=== PATIENT | female | born 1990 | race African-American/Black ===

== ENCOUNTER 2016-07-22 12:25 | Emergency (ER) | payer SELFPAY ==
[~2016-07-22] VITALS: Ht 162.6 cm; Wt 63.5 kg
[2016-07-22 12:25] VITALS: BP 123/82
== END 2016-07-22 13:27 | disposition home or self-care (01) ==
LOC: ER 12:29
DX: R07.89 Other chest pain (principal); J20.9 Acute bronchitis, unspecified; F17.200 Nicotine dependence, unspecified, uncomplicated
CPT/HCPCS: 71010-TC; A4606; Z7610

== ENCOUNTER → 2016-12-13 | Emergency (ER) | payer MEDICAID ==
[~2016-12-13] VITALS: Ht 167.6 cm; Wt 63.5 kg
[2016-12-13 14:59] VITALS: BP 136/81
== END | disposition home or self-care (01) ==
LOC: ER 14:43
DX: J32.9 Chronic sinusitis, unspecified (principal); F17.200 Nicotine dependence, unspecified, uncomplicated
CPT/HCPCS: A4606; Z7610

== ENCOUNTER 2017-07-27 12:19 | Emergency (ER) | payer MEDICAID ==
[~2017-07-27] VITALS: Ht 162.6 cm; Wt 66.2 kg
[2017-07-27 12:28] VITALS: BP 122/73
[2017-07-27] MEDS ORDERED: DEXAMETHASONE SOD PHOSPHATE 10 MG/ML VIAL IM ONE (15:00)
[2017-07-27] MEDS ORDERED: DEXAMETHASONE SOD PHOSPHATE 10 MG/ML VIAL ONE (15:16)
== END 2017-07-27 15:58 | disposition home or self-care (01) ==
LOC: ER 12:20
DX: H61.21 Impacted cerumen, right ear (principal); H66.91 Otitis media, unspecified, right ear; J32.9 Chronic sinusitis, unspecified; F17.200 Nicotine dependence, unspecified, uncomplicated; L25.9 Unspecified contact dermatitis, unspecified cause; Z32.02 Encounter for pregnancy test, result negative
CPT/HCPCS: 36415; 84703-TC; A4606; J1100; Z7610

== ENCOUNTER → 2023-06-14 | Emergency (ER) | payer MEDICAID ==
[~2023-06-14] VITALS: Ht 162.6 cm; Wt 74.8 kg
[~2023-06-14] MED LIST: AZIT1PAC9 PO
[2023-06-14 11:54] VITALS: BP 116/59; TEMP 98.8; O2SAT 100
== END | disposition home or self-care (01) ==
LOC: ER 11:48
DX: J20.9 Acute bronchitis, unspecified (principal); F17.200 Nicotine dependence, unspecified, uncomplicated; Z79.899 Other long term (current) drug therapy